=== PATIENT | female | born 1940 | race Caucasian/White ===

== ENCOUNTER 2020-08-24 09:47 | Emergency (ER) | payer MEDICARE, OTHER ==
[~2020-08-24] VITALS: Ht 170.2 cm; Wt 76.0 kg
[~2020-08-24 09:47] MED LIST: LISI-170 PO; [UNRECOGNIZED DRUG - REMARK]
--- NOTE | 2020-08-24 09:56 | NUR ---
PT BIB EMS FOR BODY ACHES, CHILLS, SOB, DRY COUGH, DIARRHEA X 1 WEEK. 2 WEEKS AGO PT STATES SHE WAS IN A CAR WITH HER 3 FRIENDS AND ALL 3 OF WHICH TESTED POSITIVE FOR COVID. EKG COMPLETE. BLANKET PROVIDED. PROVIDER IS BEDSIDE. CONNECTED TO MONITORING EQUIPMENT.
[2020-08-24 10:42] LABS: BASOPHILS % (AUTO) 0 % (0-1); EOSINOPHILS % (AUTO) 0 % (1-7); LYMPHOCYTES % (AUTO) 6 % (22-44); MEAN CORPUSCULAR HGB CONC 33.8 g/dL (32.4-35.8); MEAN PLATELET VOLUME 8.4 fL (7.4-10.4); MONOCYTES % (AUTO) 9 % (2-9); NEUTROPHILS % (AUTO) 85 % (42-75); PLATELET COUNT 164 x10^3/uL (130-400); RED BLOOD COUNT 4.49 x10^6/uL (3.82-5.3); RED CELL DISTRIBUTION WIDTH 13.8 % (9.6-15.2)
[2020-08-24 10:43] LABS: MD NO
[2020-08-24 10:51] LABS: ALBUMIN 3.2 g/dL (3.4-5.0); ANION GAP 10 mmol/L (5-15); CHLORIDE 100 mmol/L (98-107)
[2020-08-24] MEDS ORDERED: BENZONATATE 100 MG CAPSULE PO ONE (11:00)
[2020-08-24 11:15] LABS: TROPONIN I < 0.015 ng/mL (0.000-0.045)
[2020-08-24 12:28] LABS: MICROSCOPIC INDICATED
--- NOTE | 2020-08-24 12:46 | NUR ---
PT REFUSED MEDICATION SHE DOES NOT LIEK TO SWALLOW PILLS. AWARE.
--- NOTE | 2020-08-24 14:24 | NUR ---
BREAK RN: PT RESTING IN ROOM. VS STABLE. NO ACUTE DISRESS NOTED. CALL LIGHT IN PLACE. WILL CONTINUE TO MONITOR.
--- NOTE | 2020-08-24 14:40 | NUR ---
BREAK RN: REPORT GIVEN TO BRIAN PHAM
--- NOTE | 2020-08-24 15:17 | NUR ---
REPORT RECIEVED FROM ANKIT TORRES
--- NOTE | 2020-08-24 16:45 | NUR ---
pt up to restroom, steady on feet.
[2020-08-24 17:20] VITALS: BP 152/79
== END 2020-08-24 17:39 | disposition home or self-care (01) ==
LOC: ED 10:28
DX: U07.1 COVID-19 (principal); J15.9 Unspecified bacterial pneumonia; R19.7 Diarrhea, unspecified; R05 Cough; M79.10 Myalgia, unspecified site; R07.89 Other chest pain; R94.31 Abnormal electrocardiogram [ECG] [EKG]; R06.02 Shortness of breath; R50.9 Fever, unspecified; I10 Essential (primary) hypertension; E78.00 Pure hypercholesterolemia, unspecified
CPT/HCPCS: 71045; 80048; 81001; 82040; 84484; 85025; 85379; 87086; 87635; 93005; 99285

== ENCOUNTER 2020-10-21 18:22 | Emergency (ER) | payer MEDICARE ==
[~2020-10-21] VITALS: Ht 170.2 cm; Wt 78.5 kg
--- NOTE | 2020-10-21 18:32 | NUR ---
BIB EMS FOR C/O R FLANK ABD PAIN AND INCREASED BM. DENIES DIARRHEA. STOOL IS SOLID. ABD PAIN STARTED 2 DAYS AGO. PT ALSO STATES SOME TROUBLE W/ URINATION. BP ELEVATED POWER GENERATION ENGINEER AT 211/94 GIVEN 20 LABETOLOL RPT BP WAS 153/70, HR 68 SR, 97% RA. PT RESTING ON GURNEY. NADN. MONITORS APPLIED. VSS. WARM BLANKET PROVIDED. EKG COMPLETED.
--- NOTE | 2020-10-21 18:49 | NUR ---
REPORT GIVEN TO GEORGE REIS RN.
[2020-10-21] MEDS ORDERED: SODIUM CHLORIDE FLUSH 10ML SYR IVF ONE (19:00)
--- NOTE | 2020-10-21 19:04 | NUR ---
1ST CONTACT C PT. AMBULATORY TO RESTROOM FOR SAMPLE. LABS DRAWN & SENT. TO CT.
[2020-10-21 19:13] LABS: MICROSCOPIC AUTO
[2020-10-21 19:20] LABS: BASOPHILS % (AUTO) 1 % (0-1); EOSINOPHILS % (AUTO) 3 % (1-7); LYMPHOCYTES % (AUTO) 12 % (22-44); MEAN CORPUSCULAR HEMOGLOBIN 31.4 pg (27.0-34.8); MEAN CORPUSCULAR HGB CONC 33.1 g/dL (32.4-35.8); MEAN PLATELET VOLUME 9.1 fL (7.4-10.4); MONOCYTES % (AUTO) 8 % (2-9); NEUTROPHILS % (AUTO) 77 % (42-75); PLATELET COUNT 183 x10^3/uL (130-400); RED BLOOD COUNT 4.26 x10^6/uL (3.82-5.3); RED CELL DISTRIBUTION WIDTH 15.1 % (9.6-15.2)
[2020-10-21 19:22] LABS: ALANINE AMINOTRANSFERASE 42 U/L (12-78); ALBUMIN 3.5 g/dL (3.4-5.0); ANION GAP 7 mmol/L (5-15); CALCIUM 9.5 mg/dL (8.5-10.1); CHLORIDE 106 mmol/L (98-107); CREATININE 0.91 mg/dL (0.55-1.02)
[2020-10-21 19:24] LABS: MD NO
[2020-10-21 19:26] LABS: ALKALINE PHOSPHATASE 292 U/L (45-117); BILIRUBIN,TOTAL 0.7 mg/dL (0.2-1.0); TROPONIN I < 0.015 ng/mL (0.000-0.045)
[2020-10-21 20:27] VITALS: BP 168/89
== END 2020-10-21 20:29 | disposition home or self-care (01) ==
LOC: ED 18:52
DX: K80.20 Calculus of gallbladder without cholecystitis without obstruction (principal); R10.11 Right upper quadrant pain; R10.31 Right lower quadrant pain; M54.5 Low back pain; I10 Essential (primary) hypertension; G89.29 Other chronic pain; E78.00 Pure hypercholesterolemia, unspecified
CPT/HCPCS: 36415; 74176; 80053; 81001; 83690; 84484; 85025; 87086; 93005; 99285